=== PATIENT | female | born 1980 | race African-American/Black ===

== ENCOUNTER 2022-11-16 02:06 | Emergency (ER) | payer MEDICAID ==
[~2022-11-16] VITALS: Ht 167.6 cm; Wt 68.0 kg
[2022-11-16] MEDS ORDERED: ACETAMINOPHEN 325MG TABLET PO ONE (03:15)
[2022-11-16 04:25] LABS: UCG SCREEN NEGATIVE
[2022-11-16] MEDS ORDERED: IBUP-2028 MT (05:08)
[2022-11-16 05:23] VITALS: BP 131/84
== END 2022-11-16 05:26 | disposition home or self-care (01) ==
LOC: ER 02:06
DX: R55 Syncope and collapse (principal); I10 Essential (primary) hypertension
CPT/HCPCS: 70480; 81025; 99284